=== PATIENT | female | born 1935 | race Caucasian/White ===

== ENCOUNTER 2021-05-07 10:24 | Outpatient (CLI) | payer MEDICARE, SELFPAY ==
--- NOTE | ~2021-05-07 | XR_ITS ---
XR foot LT min 3V DATE: 05/07/2021 10:45 INDICATION: Spider bite 4 months ago. History of neuropathy. TECHNIQUE: 4 views COMPARISON: None FINDINGS: Plantar and posterior calcaneal enthesopathy. There is mild osteoarthritic change of the tarsal and tarsometatarsal joints. No fracture, dislocation, periosteal reaction or bone destruction. IMPRESSION: Plantar and posterior calcaneal enthesopathy Mild osteoarthritis Reviewed, dictated and finalized at location [facility]
== END 2021-05-07 10:25 | disposition home or self-care (01) ==
LOC: ANHIMG 10:29
PROVIDERS: PCP Family Medicine; Visit Provider Physician Assistant
DX: M79.673 Pain in unspecified foot (principal); M77.32 Calcaneal spur, left foot; M19.072 Primary osteoarthritis, left ankle and foot
CPT/HCPCS: 73630